=== PATIENT | female | born 1950 | race Caucasian/White ===

== ENCOUNTER → 2022-07-28 | Outpatient (REF) | payer MEDICARE, OTHER | LOC: M SFHCDERM 15:03 | PROVIDERS: ATTEND Physician Assistant | DX: C44.519 Basal cell carcinoma of skin of other part of trunk (principal) ==

== ENCOUNTER → 2023-04-27 | Outpatient (REF) | payer MEDICARE, OTHER | LOC: M SFHCDERM 17:10 | PROVIDERS: ATTEND Physician Assistant | DX: C44.311 Basal cell carcinoma of skin of nose (principal) ==

== ENCOUNTER → 2023-09-04 | Outpatient (REF) | payer MEDICARE, OTHER | LOC: M SFHCDERM 17:50 | PROVIDERS: ATTEND Dermatology | DX: C44.309 Unspecified malignant neoplasm of skin of other parts of face (principal) ==

== ENCOUNTER → 2024-11-30 | Outpatient (REF) | payer MEDICARE, BC | LOC: M SFHCDERM 15:35 | PROVIDERS: ATTEND Dermatology | DX: L02.93 Carbuncle, unspecified (principal); D48.5 Neoplasm of uncertain behavior of skin ==

== ENCOUNTER → 2025-06-26 | Outpatient (REF) | payer MEDICARE, OTHER | LOC: M SFHCDERM 18:17 | PROVIDERS: ATTEND Nurse Practitioner Family | DX: C44.612 Basal cell carcinoma of skin of right upper limb, including shoulder (principal) ==